=== PATIENT | female | born 1955 | race African-American/Black ===

== ENCOUNTER 2024-03-25 10:16 | Emergency (ER) | payer OTHER ==
[~2024-03-25] VITALS: Ht 175.3 cm; Wt 69.0 kg
[2024-03-25 10:33] VITALS: O2SAT 95
[2024-03-25 11:05] LABS: CHLORIDE 112 mEq/L (98-107); POTASSIUM 5.1 mEq/L (3.5-5.1); SODIUM 141 mEq/L (136-145)
[2024-03-25 11:06] LABS: CALCIUM 8.8 mg/dL (8.7-10.4); CARBON DIOXIDE 25 mEq/L (21-32)
[2024-03-25 11:11] LABS: CREATININE 0.7 mg/dL (0.6-1.0); GLUCOSE 104 mg/dL (70-105); UREA NITROGEN BLOOD 13 mg/dL (9-23)
[2024-03-25 11:23] LABS: TROPONIN I HIGH SENSITIVITY 148 ng/L (3.0-34)
[2024-03-25 11:24] LABS: BASOPHILS % 0.8 % (0.0-2.0); EOSINOPHILS % 3.4 % (0.0-5.0); HEMATOCRIT. 36.9 % (36.0-48.0); HEMOGLOBIN. 11.8 g/dL (12.0-16.0); MEAN CORPUSCULAR HEMOGLOBIN 30.1 pg (28.0-32.0); MEAN PLATELET VOLUME 8.8 fl (7.4-10.4); MONOCYTES % 7.5 % (2.0-8.0); NEUTROPHILS % 65.3 % (40.0-76.0); PLATELET 249 x1000/uL (130-400); RED BLOOD CELL COUNT 3.92 mill/uL (4.2-5.4); RED CELL DISTRIBUTION WIDTH 14.6 % (11.6-14.6); WHITE BLOOD COUNT 5.6 x1000/uL (4.5-11.0)
[2024-03-25] MEDS ORDERED: TETANUS, DIPHTHERIA, PERTUSSIS VAC/PF 0.5ML (>10YR OLD) IM ONE (11:30)
[2024-03-25] MEDS: ACETAMINOPHEN 325MG TABLET PO STA (12:15)
[2024-03-25] MEDS: SODIUM CHLORIDE 0.9% 1,000 ML IV ONE (12:16)
[2024-03-25 14:51] LABS: TROPONIN I HIGH SENSITIVITY 152 ng/L (3.0-34)
[2024-03-25] MEDS: TETANUS, DIPHTHERIA, PERTUSSIS VAC/PF 0.5ML (>10YR OLD) IM ONE (16:02)
[2024-03-25 16:39] VITALS: BP 126/75; PULSE 96; RESP 17; TEMP 36.55848; O2SAT 100
== END 2024-03-25 17:20 | disposition short-term general hospital (02) ==
LOC: ER 10:58 → EDBEDREQ 14:29 → ER 17:20
DX: S01.01XA Laceration without foreign body of scalp, initial encounter (principal); I21.4 Non-ST elevation (NSTEMI) myocardial infarction; R55 Syncope and collapse; F41.9 Anxiety disorder, unspecified; F32.A Depression, unspecified; E78.00 Pure hypercholesterolemia, unspecified; Z98.890 Other specified postprocedural states; W18.39XA Other fall on same level, initial encounter; Y93.89 Activity, other specified; Y92.89 Other specified places as the place of occurrence of the external cause; Y99.8 Other external cause status
CPT/HCPCS: 99285; 96360; 70450; 71045; 80048; 83880; 85025; 84484; 36415; 90715; 93005; 12001; 90471; J7030